=== PATIENT | female | born 1950 | race Caucasian/White ===

== ENCOUNTER 2023-11-08 12:00 | Outpatient (RCR) | payer OTHER, SELFPAY | END 2023-11-08 23:59 | disposition home or self-care (01) | LOC: RPT 12:00 | PROVIDERS: ATTENDING PHYSICIAN Orthopaedic Surgery Adult Reconstructive Orthopaedic Surgery; FAMILY PHYSICIAN Family Medicine | DX: Z47.1 Aftercare following joint replacement surgery (principal); Z96.652 Presence of left artificial knee joint | CPT/HCPCS: 97110; 97161; 97530 ==

== ENCOUNTER 2023-11-21 14:31 | Outpatient (RCR) | payer OTHER, SELFPAY | END 2023-11-21 14:59 | disposition home or self-care (01) | LOC: RPT 14:31 | PROVIDERS: ATTENDING PHYSICIAN Orthopaedic Surgery Adult Reconstructive Orthopaedic Surgery; FAMILY PHYSICIAN Family Medicine | DX: Z47.1 Aftercare following joint replacement surgery (principal); Z96.652 Presence of left artificial knee joint | CPT/HCPCS: 97110 ==